=== PATIENT | female | born 1965 | race Caucasian/White ===

== ENCOUNTER → 2016-08-22 | Outpatient (CLI) | payer OTHER ==
--- NOTE | 2016-08-22 11:50 | P.STRESS ---
- Stress Test Note Stress Test Results/Findings: Exam Performed: stress test Exam Date: 08/22/16 Height: 5 ft 4 in Weight: 75.75 kg Protocol: young Stage: 2 Duration of Exercise: 7:53 Resting Heart Rate: 76 Resting Blood Pressure: 142/94 Maximum Achieved Heart Rate: 157 Maximum Achieved Blood Pressure: 192/81 85% PMHR: 145 100% PMHR: 170 METS: 9.5 Technologist Comment: Stress Test Results/Findings: Baseline EKG shows sinus mechanism, normal axis and intervals, rare PVCs. Patient exercise for 7 minutes 53 seconds reaching a peak rate of 145 beats per minute which is equal to 92% maximum predicted heart rate. Test was terminated to fatigue there was no chest pain or EKG monitoring shows a [address] segment depression that improved in recovery. Impression: 1. Average exercise tolerance with no chest pain. 2. Borderline positive echocardiographic stress testing. 3. If clinically indicated and imaging stress test would be helpful.
--- NOTE | 2016-08-24 09:04 | MM ---
Reason for exam: screening (asymptomatic). History: Patient is postmenopausal and has history of other cancer at age 50. Family history of breast cancer in sister at age 48. Physical Findings: A clinical breast exam by your physician is recommended on an annual basis and results should be correlated with mammographic findings. MG Screening Mammo w CAD Bilateral CC and MLO view(s) were taken. No prior studies available for comparison. The breast tissue is heterogeneously dense. This may lower the sensitivity of mammography. Patient's outside prior report is not available. Punctate regional calcifications are noted in both breasts are typically benign. No discrete abnormality seen. Asymmetric density inferior left breast is suspected to represent an island of tissue and cam be reassessed in 6 months. ASSESSMENT: Probably benign, BI-RAD 3 RECOMMENDATION: Follow-up diagnostic mammogram of the left breast in 6 months.
== END | disposition home or self-care (01) ==
LOC: RADMAMWWP 09:37
PROVIDERS: ATTEND Internal Medicine
DX: Z12.31 Encounter for screening mammogram for malignant neoplasm of breast (principal); R92.8 Other abnormal and inconclusive findings on diagnostic imaging of breast; R07.9 Chest pain, unspecified
CPT/HCPCS: 93017; G0202

== ENCOUNTER → 2017-01-01 | Outpatient (CLI) | payer OTHER ==
--- NOTE | 2017-01-01 13:07 | FL ---
Modified barium swallow. HISTORY: Dysphagia. Modified barium swallow was performed with the department of speech pathology. The patient was prese nted with various consistencies of barium. There is no evidence for aspiration or penetration. Retropharyngeal fullness identified. Full report is to follow from the department of speech pathology. Impression: No evidence for aspiration or penetration at this time.
== END | disposition home or self-care (01) ==
LOC: RADFLMAIN 11:26
PROVIDERS: ATTEND Otolaryngology
DX: R13.12 Dysphagia, oropharyngeal phase (principal)
CPT/HCPCS: 74230

== ENCOUNTER → 2017-03-15 | Outpatient (CLI) | payer MEDICARE, OTHER ==
--- NOTE | 2017-03-16 13:42 | ECHOS ---
STRESS ECHOCARDIOGRAM DATE OF SERVICE: 03/15/2017 INDICATION OF THE STUDY: Chest discomfort. MEDICATIONS: BASELINE HEART RATE: 84 BASELINE BLOOD PRESSURE: 118/92 MAXIMUM HEART RATE: 160 MAXIMUM BLOOD PRESSURE: 134/53 85% MPHR: 145 100% MPHR: 170 METS: 8.1 MAXIMUM STAGE REACHED: II TOTAL EXERCISE TIME: 6:45 CLINICAL INFORMATION: STRESS DATA: Pretesting physical examination showed a heart rate of 84, pressure is 118/92 mmHg. Baseline EKG showed sinus mechanism. The patient exercised on the treadmill according to Lorenzo protocol for a total of 6 minutes and 45 seconds and achieved 8.1 METs. Max heart rate was 160 beats per minute and maximum pressure was 134/35 mmHg. Clinically the patient developed chest discomfort and also shortness of breath in response to exercise. The EKG did not show any significant ST or T-wave abnormalities consistent with ischemia. The patient did have about [address]- segment changes. ECHOCARDIOGRAM IMAGES: On echocardiogram images from parasternal long axis view, parasternal short axis view, apical 4 chamber view and apical 2 chamber were obtained as the baseline images, at the peak of the heart rate, as well as on recovery. The echocardiogram images showed good augmentation in the left ventricular systolic function without any evidence of wall motion abnormalities consistent with ischemia. CONCLUSION: 1. Good exercise capacity. 2. Mild EKG changes and response to exercise did not meet the criteria for ischemia. 3. Normal echocardiogram in response to exercise indication. JUANJOSE / ELA: [id number] /
== END | disposition home or self-care (01) ==
LOC: RADNMMAIN 09:48
PROVIDERS: ATTEND Internal Medicine
DX: R07.89 Other chest pain (principal)
CPT/HCPCS: 93017; 93350

== ENCOUNTER → 2017-04-05 | Outpatient (CLI) | payer MEDICARE, OTHER ==
--- NOTE | 2017-04-06 11:18 | MM ---
Reason for exam: follow-up at short interval from prior study. Last mammogram was performed 7 months ago. History: Patient is postmenopausal and has history of other cancer at age 50. Family history of breast cancer in sister and breast cancer in sister at age 48. Physical Findings: Nurse did not find any significant physical abnormalities on exam. MG 3D Diag Mammo W/Cad LT CC and MLO view(s) were taken of the left breast. Prior study comparison: August 22, 2016, bilateral MG screening mammo w CAD. The breast tissue is heterogeneously dense. This may lower the sensitivity of mammography. The inferior asymmetric density disperses on tighter compression. No persisting abnormality on 3d image. These results were verbally communicated with the patient and result sheet given to the patient on 04/05/17. ASSESSMENT: Negative, BI-RAD 1 RECOMMENDATION: Return to routine screening mammogram schedule for both breasts. Back on schedule for August 2017. (High risk screening breast MRI may be considered if there is greater than 20% lifetime risk of developing breast cancer).
== END | disposition home or self-care (01) ==
LOC: RADMAMWWP 14:27
PROVIDERS: ATTEND Internal Medicine
DX: R92.8 Other abnormal and inconclusive findings on diagnostic imaging of breast (principal)
CPT/HCPCS: 77065; G0279

== ENCOUNTER → 2017-10-11 | Outpatient (CLI) | payer MEDICARE, OTHER ==
--- NOTE | 2017-10-11 14:09 | MR ---
EXAMINATION TYPE: MR cervical spine wo/w con DATE OF EXAM: 10/11/2017 COMPARISON: None HISTORY: Radiculopathy, cervical region, history of tonsillar cancer TECHNIQUE: Multiplanar, multisequence images of the cervical spine were acquired utilizing 9.5 mL intravenous Ga davist gadolinium contrast. Diffusion weighted imaging was performed. C2-C3: No evidence for degenerative disc disease. No disc bulge/herniation or protrusion. No Canal stenosis. Foramina are patent bilaterally. C3-C4: No evidence for degenerative disc disease. No disc bulge/herniation or protrusion. No Canal stenosis. Foramina are patent bilaterally. C4-C5: There is a small central protrusion with minimal anterior thecal sac compression. No cord cont act is evident. No spinal canal stenosis or neural foraminal stenosis is present. C5-C6: There is a large central and right paracentral disc bulge. This has moderate anterior thecal s ac compression. Moderate AP cord contact is evident. Some cord compression is present along the right aspect of the spinal cord. AP spinal canal stenosis is not present. In the sagittal T2-weighted imag es there is increased signal within the spinal cord posterior to the C3 to C6 levels. Small syrinx ma y be present. No suspicious enhancement is evident. C6-C7: Broad-based disc bulge has moderate anterior thecal sac compression. No cord contact is eviden t. No spinal canal stenosis is present. C7-T1: No evidence for degenerative disc disease. No disc bulge/herniation or protrusion. No Canal stenosis. Foramina are patent bilaterally. Cervical segments are intact. There is normal alignment. Craniovertebral junction is normal. No susp icious metastatic disease is evident. IMPRESSION: Large right paracentral disc bulge C5-6 has moderate anterior thecal sac compression, cord contact wi th cord deformity. AP spinal canal stenosis is not present. However, there is signal abnormality with in the spinal cord C3-C6 levels could be a small syrinx. 2. Broad-based disc bulge with moderate anterior thecal sac compression C6-7. Cord contact is not pre sent. 3. Small central protrusion C4-5 without cord contact or spinal canal stenosis.
== END | disposition home or self-care (01) ==
LOC: RADMRIMAIN 08:19
PROVIDERS: ATTEND Internal Medicine
DX: M50.121 Cervical disc disorder at C4-C5 level with radiculopathy (principal)
CPT/HCPCS: 72156; A9581

== ENCOUNTER → 2017-10-31 | Outpatient (CLI) | payer MEDICARE, OTHER ==
--- NOTE | 2017-11-01 15:08 | MM ---
Reason for exam: screening (asymptomatic). Last mammogram was performed 7 months ago. History: Patient is postmenopausal and has history of other cancer at age 50. Family history of breast cancer in sister and breast cancer in sister at age 48. Physical Findings: A clinical breast exam by your physician is recommended on an annual basis and results should be correlated with mammographic findings. MG 3D Screening Mammo W/Cad Bilateral CC and MLO view(s) were taken. Prior study comparison: April 05, 2017, left breast MG 3d diag mammo w/cad LT. August 22, 2016, bilateral MG screening mammo w CAD. The breast tissue is heterogeneously dense. This may lower the sensitivity of mammography. There is no discrete abnormality. No significant changes when compared with prior studies. ASSESSMENT: Negative, BI-RAD 1 RECOMMENDATION: Routine screening mammogram of both breasts in 1 year.
== END ==
LOC: RADMAMWWP 12:27
PROVIDERS: ATTEND Internal Medicine
DX: Z12.31 Encounter for screening mammogram for malignant neoplasm of breast (principal)
CPT/HCPCS: 77063; 77067

== ENCOUNTER → 2018-06-12 | Outpatient (CLI) | payer MEDICARE, OTHER ==
--- NOTE | 2018-06-13 08:12 | MR ---
MRI CERVICAL SPINE: CLINICAL HISTORY: Persistent headache and neck pain status post fusion. Spondylosis with myelopathy TECHNIQUE: Multiplanar, multisequence imaging of the cervical spine is performed without IV contrast. COMPARISON: Prior MRI cervical spine October 11, 2017. FINDINGS: Sagittal images of the cervical spine show the craniocervical junction to remain within nor mal limits. The cervical and upper thoracic spinal cord redemonstrates syrinx diffusely from C2 to C 3 disc space through the mid C7 level sagittal image 7 and more prominent near the C5-C6 disc space l evel similar to prior. There is AP diameter narrowing near C5 level sagittal image 7 similar to prior . Vertebral alignment is stable. There is interval surgery with artifact from anterior fusion plate C 5-C7 level. There is effacement of anterior thecal sac C5 level less prominent than prior study. Inte rval resection of disc herniation C6-C7 level is noted. Vertebral body heights and disc space heights above and below surgical levels are satisfactory. The bone marrow signal intensity is within normal limits above and below surgical levels. Axial images show the C2-C3 and C3-C4 levels to remain within normal limits. Axial images at C4-C5 level shows central disc protrusion effacing anterior thecal sac slightly more prominent than prior, bilateral neural foramina are patent. Axial images at C5-C6 level show effacement of anterior thecal sac likely from posterior bony project ion with mild to moderate left greater than right bilateral neural foraminal narrowing, improvement i n effacement after this resection. Axial images at the C6-C7 level show improvement after discs resection, there is mild to moderate lef t greater than right bilateral neural foraminal narrowing likely from marginal spurring. Axial images at C7-T1 level remain within normal limits. IMPRESSION: Successful interval surgery of disc herniations C5-C6 and C6-C7 level. Satisfactory align ment. Bony projection inferior C5 level still effaces anterior thecal sac. There is persistent bilate ral neural foraminal narrowing at these levels due to marginal spurring. There is persistent cervical syrinx with possible small focus of myelomalacia.
== END ==
LOC: RADMRIMAIN 18:09
PROVIDERS: ATTEND Physician Assistant
DX: M50.222 Other cervical disc displacement at C5-C6 level (principal)
CPT/HCPCS: 72141

== ENCOUNTER → 2018-08-02 | Outpatient (CLI) | payer MEDICARE, OTHER ==
[2018-08-02 11:28] LABS: HCT 46.5 % (34.0-46.0); HGB 15.1 gm/dL (11.4-16.0); MCH 30.5 pg (25.0-35.0); MCHC 32.5 g/dL (31.0-37.0); MCV 93.7 fL (80.0-100.0); Mean Platelet Volume 6.6; Platelet Count 238 k/uL (150-450); RBC 4.97 m/uL (3.80-5.40); Reticulocyte % 3.9 % (0.5-2.0); WBC 4.8 k/uL (3.8-10.6)
[2018-08-02 18:30] LABS: African American GFR (CKD) 85.8 (60.0-200.0); Albumin 4.4 g/dL (3.80-4.90); Albumin/Globulin Ratio 2.2 (1.60-3.17); Anion Gap 6.3 mmol/L (4.00-12.00); BUN/Creat Ratio 18.89 Ratio (12.00-20.00); Calcium 9.6 mg/dL (8.7-10.3); Carbon Dioxide 30.7 mmol/L (21.6-31.8); LDL Cholesterol,Calculated 118.8 mg/dL (0.0-131.0); Potassium 4.5 mmol/L (3.5-5.5); Total Bilirubin 0.5 mg/dL (0.2-1.2); Total Protein 6.4 g/dL (6.2-8.2); VLDL Calculation 31.2 mg/dL (5.00-40.00)
== END | disposition home or self-care (01) ==
LOC: LABWHC1 10:55
PROVIDERS: ATTEND Internal Medicine
DX: E78.2 Mixed hyperlipidemia (principal); K21.9 Gastro-esophageal reflux disease without esophagitis; R53.83 Other fatigue
CPT/HCPCS: 36415; 80053; 80061; 84439; 84443; 85027; 85045

== ENCOUNTER → 2019-01-20 | Outpatient (CLI) | payer MEDICARE, OTHER ==
--- NOTE | 2019-01-20 12:36 | MM ---
Reason for exam: screening (asymptomatic). Last mammogram was performed 1 year and 3 months ago. History: Patient is postmenopausal and has history of other cancer at age 50. Family history of breast cancer in sister at age 40 and breast cancer in sister at age 48. Physical Findings: A clinical breast exam by your physician is recommended on an annual basis and results should be correlated with mammographic findings. MG 3D Screening Mammo W/Cad Bilateral CC and MLO view(s) were taken. Prior study comparison: October 31, 2017, bilateral MG 3d screening mammo w/cad. April 05, 2017, left breast MG 3d diag mammo w/cad LT. The breast tissue is heterogeneously dense. This may lower the sensitivity of mammography. No suspicious abnormality. No significant changes when compared with prior studies. ASSESSMENT: Negative, BI-RAD 1 RECOMMENDATION: Routine screening mammogram of both breasts in 1 year.
== END ==
LOC: RADMAMWWP 10:10
PROVIDERS: ATTEND Internal Medicine
DX: Z12.31 Encounter for screening mammogram for malignant neoplasm of breast (principal)
CPT/HCPCS: 77063; 77067

== ENCOUNTER → 2019-01-21 | Outpatient (CLI) | payer MEDICARE, OTHER ==
--- NOTE | 2019-01-21 13:22 | MR ---
EXAMINATION TYPE: MR lumbar spine wo/w con DATE OF EXAM: 01/21/2019 COMPARISON: HISTORY: LBP, RLE radic x 2 mos, hx throat ca 2015 TECHNIQUE: Multiplanar, multisequence images of the lumbar spine were acquired utilizing [address] gadolinium contrast. L1-L2: Normal disc appearance without desiccation. No herniation, protrusion or disc bulging. No ca nal stenosis is present. Foramina are patent bilaterally. L2-L3: There is a minimal posterior broad-based disc bulge causing slight anterior mass effect on the thecal sac. No significant central stenosis or foraminal encroachment. L3-L4: Mild loss of disc height and signal is noted. Minimal posterior disc bulge causes slight anter ior mass effect on the thecal sac. L4-L5: Minimal posterior broad-based disc bulge. Facet arthropathy with hypertrophy ligamentum flavum causes some minimal posterior lateral mass effect on the thecal sac. Circumferential extension endpl ate disc complex encroaches somewhat on the neural foramina right greater than left. L5-S1: There is facet arthropathy change present. No significant spinal stenosis or foraminal encroac hment. No disc herniation. Lumbar segments are intact. No paraspinal masses are identified. Conus medullaris has a normal appe arance. Probable hemangioma present at the posterior aspect of the L1 vertebral body. Multiple nerve sheath diverticula are noted incidentally. No abnormal enhancement following contrast administration. IMPRESSION: Mild degenerative disc changes.
== END | disposition home or self-care (01) ==
LOC: RADMRIMAIN 08:49
PROVIDERS: ATTEND Internal Medicine
DX: M47.816 Spondylosis without myelopathy or radiculopathy, lumbar region (principal)
CPT/HCPCS: 72158; A9585

== ENCOUNTER → 2019-05-01 | Outpatient (CLI) | payer MEDICARE, OTHER ==
--- NOTE | 2019-05-01 13:21 | XR ---
EXAMINATION TYPE: XR chest 2V DATE OF EXAM: 05/01/2019 COMPARISON: 12/27/2017 HISTORY: Cough. Esophageal carcinoma. TECHNIQUE: Frontal and lateral views of the chest are obtained. FINDINGS: There is no focal air space opacity, pleural effusion, or pneumothorax seen. The cardiac silhouette size is within normal limits. The osseous structures are intact. Minimal degenerative ch anges of the spine. Cervical fusion device is partially visualized. There is eventration of the hemid iaphragms. IMPRESSION: No acute cardiopulmonary process.
== END | disposition home or self-care (01) ==
LOC: RADXRMAIN 12:22
PROVIDERS: ATTEND Otolaryngology Plastic Surgery within the Head & Neck
DX: R05 Cough (principal)
CPT/HCPCS: 71046

== ENCOUNTER → 2020-08-30 | Outpatient (CLI) | payer MEDICARE, OTHER ==
--- NOTE | 2020-08-31 08:33 | MM ---
Reason for exam: screening (asymptomatic). Last mammogram was performed 1 year and 7 months ago. History: Patient is postmenopausal and has history of other cancer at age 50. Family history of breast cancer in sister at age 40 and breast cancer in sister at age 48. Physical Findings: A clinical breast exam by your physician is recommended on an annual basis and results should be correlated with mammographic findings. MG Screening Mammo w CAD Bilateral CC and MLO view(s) were taken. Prior study comparison: January 20, 2019, bilateral MG 3d screening mammo w/cad. October 31, 2017, bilateral MG 3d screening mammo w/cad. There are scattered fibroglandular densities. ASSESSMENT: Negative, BI-RAD 1 RECOMMENDATION: Routine screening mammogram of both breasts in 1 year.
== END | disposition home or self-care (01) ==
LOC: RADMAMWWP 11:13
PROVIDERS: ATTEND Internal Medicine
DX: Z12.31 Encounter for screening mammogram for malignant neoplasm of breast (principal); Z78.0 Asymptomatic menopausal state; Z85.9 Personal history of malignant neoplasm, unspecified; Z80.3 Family history of malignant neoplasm of breast
CPT/HCPCS: 77067

== ENCOUNTER → 2020-11-11 | Outpatient (CLI) | payer OTHER ==
--- NOTE | 2020-11-11 12:43 | XR ---
EXAMINATION TYPE: XR chest 2V DATE OF EXAM: 11/11/2020 COMPARISON: Chest x-ray 05/01/2019 HISTORY: Shortness of breath TECHNIQUE: Frontal and lateral views of the chest are obtained. FINDINGS: There is no focal air space opacity, pleural effusion, or pneumothorax seen. The cardiac silhouette size is within normal limits. There is eventration of the right hemidiaphragm which is mi ldly elevated as on prior. Postoperative changes are noted to the cervical spine. The osseous structu res are intact. IMPRESSION: No acute cardiopulmonary process.
== END | disposition home or self-care (01) ==
LOC: RADXRMAIN 09:17
PROVIDERS: ATTEND Internal Medicine
DX: R06.02 Shortness of breath (principal)
CPT/HCPCS: 71046

== ENCOUNTER 2023-05-27 11:59 | Emergency (ER) | payer OTHER ==
--- NOTE | 2023-05-27 12:27 | ED ---
Dizziness HPI - General Chief Complaint: Dizziness Stated Complaint: Dizziness Time Seen by Provider: 05/27/23 12:25 Source: patient, RN notes reviewed Mode of arrival: ambulatory Limitations: no limitations - History of Present Illness Initial Comments: 57-year-old female presented to the ER with chief complaint of lightheadedness/dizziness. She reports for the last week she has been having an increase in lightheaded and dizziness with mild shortness of breath. She states when symptoms increase she feels like she is going to "pass out". She also is reporting a pounding headache. She denies any fevers, chills, nausea, vomiting, abdominal pain, constipation/diarrhea, peripheral edema. - Related Data Home Medications Medication Instructions Recorded Confirmed traZODone HCL [Desyrel] 100 mg PO HS 09/11/15 09/11/15 Previous Rx's Medication Instructions Recorded Hydrocodone/Acetaminophen [[place] 1 tab PO Q6HR PRN #15 tab 09/11/15 5-325] Amoxic-Pot Clav 875-125Mg 1 tab PO Q12HR 10 Days #20 tab 04/12/23 [Augmentin 875-125] Ciprofloxacin-Dexameth [Ciprodex 4 drops RIGHT EAR BID 7 Days #7.5 04/12/23 Otic Susp] ml Meclizine [Antivert] 12.5 mg PO Q6H #15 tablet 05/27/23 Allergies Allergy/AdvReac Type Severity Reaction Status Date / Time codeine phosphate Allergy Itching Verified 05/27/23 12:12 [From Tylenol-Codeine #3] Review of Systems ROS Statement: Those systems with pertinent positive or pertinent negative responses have been documented in the HPI. ROS Other: All systems not noted in ROS Statement are negative. Past Medical History Past Medical History: Cancer, Hypertension, Osteoarthritis (OA) Additional Past Medical History / Comment(s): TONSIL CANCER History of Any Multi-Drug Resistant Organisms: None Reported Past Surgical History: Tubal Ligation Additional Past Surgical History / Comment(s): "part of skull removed" - cyst on spinal cord Past Anesthesia/Blood Transfusion Reactions: No Reported Reaction Past Psychological History: Anxiety, Depression, Panic Disorder Smoking Status: Vaper Past Alcohol Use History: Occasional Past Drug Use History: None Reported - Past Family History Sister(s) Family Medical History: Cancer Additional Family Medical History / Comment(s): breast, pancreatic cancer General Exam Limitations: no limitations General appearance: alert, in no apparent distress Head exam: Present: atraumatic, normocephalic, normal inspection Eye exam: Present: normal appearance, PERRL, EOMI. Absent: scleral icterus, conjunctival injection, periorbital swelling ENT exam: Present: normal exam, mucous membranes moist Neck exam: Present: normal inspection. Absent: tenderness, meningismus, lymphad enopathy Respiratory exam: Present: normal lung sounds bilaterally. Absent: respiratory distress, wheezes, rales, rhonchi, stridor Cardiovascular Exam: Present: regular rate, normal rhythm, normal heart sounds. Absent: systolic murmur, diastolic murmur, rubs, gallop, clicks Neurological exam: Present: alert, oriented X3, CN II-XII intact Skin exam: Present: warm, dry, intact, normal color. Absent: rash Course Vital Signs 05/27/23 05/27/23 05/27/23 12:09 13:16 13:46 Temperature 97.7 F 98.4 F Pulse Rate 84 60 Respiratory 18 18 Rate Blood Pressure 155/96 138/86 136/80 O2 Sat by Pulse 99 57 L 99 Oximetry 05/27/23 05/27/23 14:27 15:20 Temperature 98.4 F Pulse Rate 76 78 Respiratory 18 16 Rate Blood Pressure 168/98 158/96 O2 Sat by Pulse 97 99 Oximetry Medical Decision Making - Medical Decision Making Was pt. sent in by a medical professional or institution (, PA, PROTECTION ANALYST, urgent care, hospital, or correction...) When possible be specific @ -No Did you speak to anyone other than the patient for history (EMS, parent, family, police, friend...)? What history was obtained from this source @ -No Did you review nursing and triage notes (agree or disagree)? Why? @ -I reviewed and agree with nursing and triage notes Were old charts reviewed (outside hosp., previous admission, EMS record, old EKG, old radiological studies, urgent care reports/EKG's, correction records)? Report findings @ -No old charts were reviewed Differential Diagnosis (chest pain, altered mental status, abdominal pain women, abdominal pain men, vaginal bleeding, weakness, fever, dyspnea, syncope, headache, dizziness, GI bleed, back pain, seizure, CVA, palpatations, mental health, musculoskeletal)? @ -M differential headache EKG interpreted by me (3pts min.). @ -As above X-rays interpreted by me (1pt min.). @ -X-ray negative for acute process. CT interpreted by me (1pt min.). @ -CT brain negative for acute process. U/S interpreted by me (1pt. min.). @ -None done What testing was considered but not performed or refused? (CT, X-rays, U/S, labs)? Why? @ -None What meds were considered but not given or refused? Why? @ -None Did you discuss the management of the patient with other professionals (professionals i.e. , PA, PROTECTION ANALYST, lab, RT, psych nurse, bilingual social worker, delinquency prevention social worker, teacher, ordnance officer, telehealth case manager)? Give summary @ -No Was smoking cessation discussed for >3mins.? @ -I discussed smoking cessation for greater than 3 minutes. The risk of smoking were discussed with the patient including but not limited to risks of cancer, stroke, coronary artery disease and COPD. Also discussed with patient were multiple methods of quitting smoking. Lastly we discussed the financial cost of smoking. Was critical care preformed (if so, how long)? @ -No Were there social determinants of health that impacted care today? How? (Homel essness, low income, unemployed, alcoholism, drug addiction, transportation, low edu. Level, literacy, decrease access to med. care, prison, rehab)? @ -No Was there de-escalation of care discussed even if they declined (Discuss DNR or withdrawal of care, Hospice)? DNR status @ -No What co-morbidities impacted this encounter? (DM, HTN, Smoking, COPD, CAD, Cancer, CVA, ARF, Chemo, Hep., AIDS, mental health diagnosis, sleep apnea, morbid obesity)? @ -None Was patient admitted / discharged? Hospital course, mention meds given and route, prescriptions, significant lab abnormalities, going to OR and other pertinent info. @ -Discharge. 57-year-old female presenting to the ER with a chief complaint of dizziness and headache. History and physical exam completed. Vitals stable. No acute neurological findings on exam. Patient no signs of acute distress and nontoxic-appearing. Labs obtained unimpressive. Imaging completed in the ER negative for acute process. EKG showing sinus rhythm with no acute ST segment or T wave abnormalities. Patient received IV fluids, Toradol, Benadryl and me clizine with improvement of symptoms. Upon reevaluation, patient eager for discharge. Meclizine prescribed. Strict return parameters discussed. Patient discharged stable condition with follow-up to PCP. Patient verbally expressed understanding and agreement with care plan. Case discussed with ED attending, Dr. Cheek. Undiagnosed new problem with uncertain prognosis? @ -No Drug Therapy requiring intensive monitoring for toxicity (Heparin, Nitro, Insulin, Cardizem)? @ -No Were any procedures done? @ -No Diagnosis/symptom? @ -Dizziness Acute, or Chronic, or Acute on Chronic? @ -Acute Uncomplicated (without systemic symptoms) or Complicated (systemic symptoms)? @ -Uncomplicated Side effects of treatment? @ -No Exacerbation, Progression, or Severe Exacerbation? @ -No Poses a threat to life or bodily function? How? (Chest pain, [place], [place], pneumonia, PE, COPD, DKA, ARF, appy, cholecystitis, CVA, Diverticulitis, Homicidal, Suicidal, threat to staff... and all critical care pts) @ -No - Lab Data Result diagrams: 05/27/23 13:05 05/27/23 13:05 Lab Results 05/27/23 05/27/23 05/27/23 Range/Units 12:33 13:05 13:05 WBC 5.2 (3.8-10.6) k/uL RBC 4.45 (3.80-5.40) m/uL Hgb 14.4 (11.4-16.0) gm/dL Hct 42.3 (34.0-46.0) % MCV 95.1 (80.0-100.0) fL MCH 32.3 (25.0-35.0) pg MCHC 34.0 (31.0-37.0) g/dL RDW 12.8 (11.5-15.5) % Plt Count 201 (150-450) k/uL MPV 6.9 Neutrophils % 59 % Lymphocytes % 31 % Monocytes % 6 % Eosinophils % 2 % Basophils % 1 % Neutrophils # 3.0 (1.3-7.7) k/uL Lymphocytes # 1.6 (1.0-4.8) k/uL Monocytes # 0.3 (0-1.0) k/uL Eosinophils # 0.1 (0-0.7) k/uL Basophils # 0.0 (0-0.2) k/uL PT (10.0-12.5) sec INR (<1.2) APTT (22.0-30.0) sec Sodium 140 (137-145) mmol/L Potassium 3.4 L (3.5-5.1) mmol/L Chloride 103 (98-107) mmol/L Carbon Dioxide 31 H (22-30) mmol/L Anion Gap 6 mmol/L BUN 11 (7-17) mg/dL Creatinine 0.64 (0.52-1.04) mg/dL Est GFR (CKD-EPI)AfAm >90 (>60 ml/min/1.73 sqM) Est GFR (CKD-EPI)NonAf >90 (>60 ml/min/1.73 sqM) Glucose 100 H (74-99) mg/dL Plasma Lactic Acid Michael (0.7-2.0) mmol/L Calcium 9.1 (8.4-10.2) mg/dL Total Bilirubin 0.8 (0.2-1.3) mg/dL AST 18 (14-36) U/L ALT 15 (4-34) U/L Alkaline Phosphatase 89 (38-126) U/L Troponin I (0.000-0.034) ng/mL Total Protein 6.2 L (6.3-8.2) g/dL Albumin 3.6 (3.5-5.0) g/dL Influenza Type A (PCR) Not Detected (Not Detectd) Influenza Type B (PCR) Not Detected (Not Detectd) RSV (PCR) Not Detected (Not Detectd) SARS-CoV-2 (PCR) Not Detected (Not Detectd) 05/27/23 05/27/23 05/27/23 Range/Units 13:05 13:05 13:05 WBC (3.8-10.6) k/uL RBC (3.80-5.40) m/uL Hgb (11.4-16.0) gm/dL Hct (34.0-46.0) % MCV (80.0-100.0) fL MCH (25.0-35.0) pg MCHC (31.0-37.0) g/dL RDW (11.5-15.5) % Plt Count (150-450) k/uL MPV Neutrophils % % Lymphocytes % % Monocytes % % Eosinophils % % Basophils % % Neutrophils # (1.3-7.7) k/uL Lymphocytes # (1.0-4.8) k/uL Monocytes # (0-1.0) k/uL Eosinophils # (0-0.7) k/uL Basophils # (0-0.2) k/uL PT 10.6 (10.0-12.5) sec INR 1.0 (<1.2) APTT 24.3 (22.0-30.0) sec Sodium (137-145) mmol/L Potassium (3.5-5.1) mmol/L Chloride (98-107) mmol/L Carbon Dioxide (22-30) mmol/L Anion Gap mmol/L BUN (7-17) mg/dL Creatinine (0.52-1.04) mg/dL Est GFR (CKD-EPI)AfAm (>60 ml/min/1.73 sqM) Est GFR (CKD-EPI)NonAf (>60 ml/min/1.73 sqM) Glucose (74-99) mg/dL Plasma Lactic Acid Michael 0.7 (0.7-2.0) mmol/L Calcium (8.4-10.2) mg/dL Total Bilirubin (0.2-1.3) mg/dL AST (14-36) U/L ALT (4-34) U/L Alkaline Phosphatase (38-126) U/L Troponin I <0.012 (0.000-0.034) ng/mL Total Protein (6.3-8.2) g/dL Albumin (3.5-5.0) g/dL Influenza Type A (PCR) (Not Detectd) Influenza Type B (PCR) (Not Detectd) RSV (PCR) (Not Detectd) SARS-CoV-2 (PCR) (Not Detectd) - EKG Data -: EKG Interpreted by [facility] EKG Comments: EKG taken at 12: 43 showing a sinus rhythm no acute ST segment T wave abnormalities. Ventricular rate 73, AR interval 145, QRS duration 93, QT/QTc 361/387. - Radiology Data Radiology results: report reviewed, image reviewed Disposition Clinical Impression: Headache, Dizziness Disposition: HOME SELF-CARE Condition: Stable Instructions (If sedation given, give patient instructions): Dizziness (ED) Additional Instructions: Follow-up with PCP in the next 1 to 2 days. Return to the ER for new or worse concerns. Prescriptions: Meclizine [Antivert] 12.5 mg PO Q6H #15 tablet Is patient prescribed a controlled substance at d/c from ED?: No Referrals: None,Stated [Primary Care Provider] - 1-2 days Forms: Area PCPs Time of Disposition: 15:00
[2023-05-27] MEDS: MECLIZINE 12.5 MG TAB PO STA (12:55)
[2023-05-27] MEDS: SODIUM CHLORIDE 0.9% 1,000 ML IV STA (12:56)
[2023-05-27 13:25] LABS: Basophils % (A) 1 %; Eosinophils # (A) 0.1 k/uL (0-0.7); Eosinophils % (A) 2 %; HCT 42.3 % (34.0-46.0); HGB 14.4 gm/dL (11.4-16.0); Lymphocytes # (A) 1.6 k/uL (1.0-4.8); Lymphocytes % (A) 31 %; MCH 32.3 pg (25.0-35.0); MCV 95.1 fL (80.0-100.0); Mean Platelet Volume 6.9; Monocytes # (A) 0.3 k/uL (0-1.0); Monocytes % (A) 6 %; Neutrophils % (A) 59 %; Platelet Count 201 k/uL (150-450); RBC 4.45 m/uL (3.80-5.40); RDW 12.8 % (11.5-15.5); WBC 5.2 k/uL (3.8-10.6)
[2023-05-27 13:36] LABS: ALT 15 U/L (4-34); AST 18 U/L (14-36); African American GFR (CKD) >90 (>60 ml/min/1.73 sqM); Albumin 3.6 g/dL (3.5-5.0); Alkaline Phosphatase 89 U/L (38-126); Anion Gap 6 mmol/L; Blood Urea Nitrogen 11 mg/dL (7-17); Calcium 9.1 mg/dL (8.4-10.2); Carbon Dioxide 31 mmol/L (22-30); Chloride 103 mmol/L (98-107); Glucose 100 mg/dL (74-99); Non-African American GFR(CKD) >90 (>60 ml/min/1.73 sqM); Potassium 3.4 mmol/L (3.5-5.1); Sodium 140 mmol/L (137-145); Total Bilirubin 0.8 mg/dL (0.2-1.3); Total Protein 6.2 g/dL (6.3-8.2)
[2023-05-27] MEDS: KETOROLAC 15 MG/ML 1 ML VIAL IVP STA (13:38)
[2023-05-27] MEDS: diphenhydrAMINE 50 MG/ML 1 ML VIAL IVP STA (13:39)
[2023-05-27 13:41] LABS: Partial Thromboplastin Time 24.3 sec (22.0-30.0); Prothrombin Time 10.6 sec (10.0-12.5)
[2023-05-27 14:03] VITALS: TEMP 98.4
--- NOTE | 2023-05-27 14:11 | XR ---
EXAMINATION TYPE: XR chest 2V DATE OF EXAM: 05/27/2023 12:40 PM CLINICAL INDICATION:Female, 57 years old with history of dizzy; H COMPARISON: Chest radiographs from 11/11/2020. TECHNIQUE: XR chest 2V Frontal and lateral views of the chest. FINDINGS: Lungs/Pleura: There is no evidence of pleural effusion, focal consolidation, or pneumothorax. Pulmonary vascularity: Unremarkable. Heart/mediastinum: Cardiomediastinal silhouette is unremarkable. Musculoskeletal: No acute osseous pathology. Cervical fusion hardware present. IMPRESSION: No acute cardiopulmonary disease/process.
--- NOTE | 2023-05-27 14:52 | CT ---
EXAMINATION TYPE: CT brain wo con CT DLP: 1130.4 mGycm, Automated exposure control for dose reduction was used. DATE OF EXAM: 05/27/2023 2:45 PM COMPARISON: None. CLINICAL INDICATION:Female, 57 years old with history of headache, dizziness, lightheaded and headach e TECHNIQUE: Brain: Axial CT images of the brain were obtained with coronal and sagittal reformats created and rev iewed. Contrast used: None. Oral contrast used: None. FINDINGS: Brain: Extra-axial spaces: No abnormal extra-axial fluid collections. Ventricular system: Within normal limits Cerebral parenchyma: No acute intraparenchymal hemorrhage or mass effect. The goetz-white junction is well differentiated. Cerebellum: Unremarkable. Mass effect: No evidence of midline shift. Intracranial vasculature: unremarkable Soft tissues: Normal. Calvarium/osseous structures: Postsurgical changes from prior posterior fossa decompression. Paranasal sinuses and mastoid air cells: Right mastoid effusion is identified about evidence of coale scence. Visualized orbits: Orbital contents are intact. IMPRESSION: 1. No acute intracranial process. 2. Postsurgical changes of the posterior fossa.
[2023-05-27 15:24] VITALS: BP 158/96; PULSE 78; RESP 16
== END 2023-05-27 15:20 | disposition home or self-care (01) ==
LOC: EC 11:59
DX: R42 Dizziness and giddiness (principal); R51.9 Headache, unspecified; F17.290 Nicotine dependence, other tobacco product, uncomplicated; Z11.52 Encounter for screening for COVID-19; Z88.5 Allergy status to narcotic agent
CPT/HCPCS: 93005; 80053; 83605; 84484; 85025; 85610; 85730; 87636; 71046; 70450; 99406; 99285; 96374; 96375; 96361; J1200; J1885; 36415

== ENCOUNTER → 2023-06-29 | Outpatient (CLI) | payer OTHER ==
--- NOTE | 2023-07-03 12:31 | MM ---
Reason for Exam: Screening (asymptomatic). Last mammogram was performed 1 year(s) and 3 month(s) ago. Patient History: Menarche at age 16. First Full-Term at age 17. Postmenopausal. Other cancer, age 50. Sister had breast cancer, age 48. Sister had breast cancer, age 40. Risk Values: Rox 5 year model risk: 5.4%. NCI Lifetime model risk: 30.5%. Prior Study Comparison: 01/20/2019 Bilateral Screening Mammogram, [facility]. 08/30/2020 Bilateral Screening Mammogram, [facility]. 04/06/2022 Bilateral MG screening mammo w CAD, [facility]. Tissue Density: The breasts are heterogeneously dense, which may obscure small masses. Findings: Analyzed By CAD. Right breast: There is no suspicious group of microcalcifications or new suspicious mass. Left breast: There is no suspicious group of microcalcifications or new suspicious mass. Overall Assessment: Negative, BI-RAD 1 Management: Screening Mammogram of both breasts in [address] [facility] will attempt to contact patient to return for supplemental views and ultrasound if indicated. Patient should continue monthly self-breast exams. A clinical breast exam by your physician is recommended on an annual basis. This exam should not preclude additional follow-up of suspicious palpable abnormalities. Note on Rox scores and lifetime risk: 1. A Rox score greater than 3% is considered moderate risk. If this is the case, consider specialist referral to assess eligibility for a risk reducing agent. 2. If overall lifetime risk for the development of breast cancer is 20% or higher, the patient may qualify for future screening with alternating mammogram and breast MRI. Electronically signed and approved by: Colten Messer DO
== END | disposition home or self-care (01) ==
LOC: RADMAMWWP 12:51
PROVIDERS: ATTEND Internal Medicine
DX: Z12.31 Encounter for screening mammogram for malignant neoplasm of breast (principal); Z80.3 Family history of malignant neoplasm of breast; Z78.0 Asymptomatic menopausal state
CPT/HCPCS: 77067